=== PATIENT | male | born 1945 | race Caucasian/White ===

== ENCOUNTER → 2020-06-13 | Outpatient (CLI) | payer OTHER ==
--- NOTE | 2020-06-13 15:52 | 2DMMODE ---
[place] [address] 2 D/M-MODE ECHOCARDIOGRAM Name: CHANDANA DOTSON Room: [facility]#: [id number] Admission: 06/13/20 Attend Phys: Abhinav Barraza MD Discharge: Date of : 45 Date of Service: 06/13/20 1552 Report #: [id number] THIS REPORT FOR: cc: Mehran Mann MD, Kevin MD Blick,Deangelo Horner MD [facility] ~ APPROVED REPORT Study performed: 06/13/2020 13:44:20 EXAM: Comprehensive 2D, Doppler, and color-flow Echocardiogram Patient Location: Out-Patient BSA: 2.07 HR: 69 bpm BP: 120/60 mmHg Other Information Study Quality: Fair Indications CAD 2D Dimensions IVSd: 10.77 (7-11mm) LVOT Diam: 21.83 (18-24mm) LVDd: 48.36 mm PWd: 11.06 (7-11mm) Ascending Ao: 33.37 (22-36mm) LVDs: 31.81 (25-40mm) Aortic Root: 37.86 mm Volumes Left Atrial Volume (Systole) LA ESV Index: 19.60 mL/m2 Aortic Valve AoV Peak Prince.: 0.93 m/s AO Peak Gr.: 3.45 mmHg LVOT Max P.73 mmHg AO Mean Gr.: 1.76 mmHg LVOT Mean P.61 mmHg LVOT Max V: 0.97 m/s AO V2 VTI: 16.51 cm LVOT Mean V: 0.57 m/s NATALIO (VTI): 4.22 cm2 LVOT V1 VTI: 18.61 cm Mitral Valve E/A Ratio: 0.65 [place] [address] 2 D/M-MODE ECHOCARDIOGRAM Name: CHANDANA DOTSON Room: [facility]#: [id number] Admission: 06/13/20 Attend Phys: Abhinav Barraza MD Discharge: Date of : 45 Date of Service: 06/13/20 1552 Report #: [id number] MV Decel. Time: 377.09 ms MV E Max Prince.: 0.42 m/s MV PHT: 109.36 ms MVA (PHT): 2.01 cm2 TDI E/Lateral E': 7.00 E/Medial E': 7.00 Medial E' Prince.: 0.06 m/s Lateral E' Prince.: 0.06 m/s Pulmonary Valve PV Peak Prince.: 0.75 m/s PV Peak Gr.: 2.26 mmHg Left Ventricle The left ventricle is normal size. There is normal LV segmental wall motion. There is normal left ventricular wall thickness. Left ventricular systolic function is normal. The left ventricular ejection fraction is within the normal range. LVEF is 55-60%. Grade I - abnormal relaxation pattern. Right Ventricle The right ventricle is normal size. The right ventricular systolic function is normal. Atria The left atrium size is normal. The right atrium size is normal. Aortic Valve The aortic valve is normal in structure. Trace aortic regurgitation. There is no aortic valvular stenosis. Mitral Valve The mitral valve is normal in structure. There is no mitral valve regurgitation noted. No evidence of mitral valve stenosis. Tricuspid Valve The tricuspid valve is normal in structure. There is no tricuspid valve regurgitation noted. Pulmonic Valve The pulmonary valve is normal in structure. Trace pulmonic regurgitation. Great Vessels The aortic root is normal in size. IVC is normal [place] [address] 2 D/M-MODE ECHOCARDIOGRAM Name: CHANDANA DOTSON Room: [facility]#: [id number] Admission: 06/13/20 Attend Phys: Abhinav Barraza MD Discharge: Date of : 45 Date of Service: 06/13/20 1552 Report #: [id number] collapses >50% with inspiration. Pericardium There is no pericardial effusion. <Conclusion> Left ventricular systolic function is normal. The left ventricular ejection fraction is within the normal range. <ELECTRONICALLY SIGNED> By: Deangelo Rangel MD, [facility] 06/13/201551 51 51 Deangelo Rangel MD, [facility] /INF
== END ==
LOC: M.ULTRA 12:53 → M.CRD 14:00
PROVIDERS: ATTEND Orthopaedic Surgery
DX: I25.10 Atherosclerotic heart disease of native coronary artery without angina pectoris (principal); I73.9 Peripheral vascular disease, unspecified; R55 Syncope and collapse